=== PATIENT | female | born 1960 | race Caucasian/White ===

== ENCOUNTER 2016-05-16 12:37 | Emergency (ER) | payer OTHER ==
[~2016-05-16] VITALS: Ht 154.9 cm; Wt 101.2 kg
[~2016-05-16 12:37] MED LIST: KEFLEX500 MG PO; LEVAQUIN750 MG PO; OXYMORPHONE HCL15 MG PO; PREDNISONE20 MG PO; TESSALON PERLE100 MG PO; ZOFRAN ODT4 MG PO
[2016-05-16] MEDS ORDERED: OXYCODONE HCL10 MG PO (13:20)
[2016-05-16] MEDS ORDERED: OPANA ER15 MG PO (13:21)
[2016-05-16] MEDS ORDERED: LYRICA300 MG PO (13:21)
[2016-05-16] MEDS ORDERED: FLEXERIL10 MG PO (14:35)
[2016-05-16 14:59] VITALS: BP 131/62
== END 2016-05-16 15:04 | disposition home or self-care (01) ==
LOC: EME 12:37
DX: M54.41 Lumbago with sciatica, right side (principal); G89.29 Other chronic pain; Z79.891 Long term (current) use of opiate analgesic; F17.200 Nicotine dependence, unspecified, uncomplicated
CPT/HCPCS: 72100; 73502; 99281; 99284; J1100

== ENCOUNTER → 2016-10-29 | Outpatient (CLI) | payer OTHER ==
[~2016-10-29] MED LIST changes: +FLEXERIL10 MG PO; +LYRICA300 MG PO; +OPANA ER15 MG PO; +OXYCODONE HCL10 MG PO
== END | disposition home or self-care (01) ==
LOC: NUC 08:33
DX: E05.90 Thyrotoxicosis, unspecified without thyrotoxic crisis or storm (principal)
CPT/HCPCS: 79005; A9517

== ENCOUNTER 2017-03-26 19:20 | Inpatient (IN) | payer OTHER ==
[~2017-03-26] VITALS: Ht 154.9 cm; Wt 97.9 kg
[~2017-03-26 19:20] MED LIST changes: +LYRICA150 MG PO; -LYRICA300 MG PO
[2017-03-26 20:14] LABS: HEMATOCRIT 46.8 % (36.0-46.0); MCHC 35.5 G/DL (30.0-36.0); MCV 87.3 FL (83-99); MEAN PLAT.VOLUME 9.5 uM^3 (9.5-12.4); PLATELET COUNT 161 K/uL (156-360); RBC DIS.WIDTH-CV 11.9 % (11.8-14.6); RBC DIS.WIDTH-SD 38.4 % (39-53); RED BLOOD COUNT 5.36 M/uL (3.80-5.20); WHITE BLOOD COUNT 6.9 K/uL (4.1-10.2)
[2017-03-26 20:21] LABS: CARBON DIOXIDE (BICARBONATE) 24.6 MEQ/L (20-31)
[2017-03-26 20:27] LABS: CHLORIDE 101 mEq/L (99-109); POTASSIUM 3.5 mEq/L (3.7-5.4); SODIUM 138 mEq/L (136-147)
[2017-03-26 20:28] LABS: GLUCOSE 107 mg/dL (70-99)
[2017-03-26 20:30] LABS: ANION GAP 13 MEQ/L (2-14)
[2017-03-26 20:32] LABS: GFR ESTIMATE (CALCULATED) > 59 mL/min/
[2017-03-26 20:33] LABS: UREA NITROGEN (BUN) 12 mg/dL (9-23)
[2017-03-26 20:35] LABS: TROP-I INTERPRETATION NEGATIVE; TROPONIN-I < 0.01 ng/mL (0.0-0.30)
[2017-03-26] MEDS ORDERED: PHENERGAN-CODE120 ML PO (21:59)
[2017-03-26] MEDS ORDERED: TAPAZOLE10 MG PO (22:00)
[2017-03-26] MEDS ORDERED: PROAIR HFA8.5 GM IH (22:01)
[2017-03-26] MEDS ORDERED: ALBUTEROL2.5 MG/3 M IH (22:03)
[2017-03-27 00:42] VITALS: BP 138/77
[2017-03-27 07:10] LABS: ANION GAP 11 MEQ/L (2-14); CHLORIDE 103 MEQ/L (99-109); GFR ESTIMATE (CALCULATED) > 59 mL/min/; SAMPLE HEMOLYSIS CHECK 0; SAMPLE ICTERIC CHECK 0; SAMPLE LIPEMIA CHECK 0; SODIUM 135 MEQ/L (136-147); UREA NITROGEN (BUN) 15 mg/dL (9-23)
[2017-03-27 07:11] LABS: GLUCOSE 419 mg/dL (70-99); MCH 30.3 PG (29.0-34.0); MCHC 34.4 G/DL (30.0-36.0); MCV 88.2 FL (83-99); MEAN PLAT.VOLUME 9.6 uM^3 (9.5-12.4); PLATELET COUNT 147 K/uL (156-360); POTASSIUM 4.3 MEQ/L (3.7-5.4); RBC DIS.WIDTH-SD 39.1 % (39-53); RED BLOOD COUNT 4.65 M/uL (3.80-5.20); WHITE BLOOD COUNT 2.9 K/uL (4.1-10.2)
[2017-03-27 07:23] VITALS: BP 129/68
[2017-03-27 08:12] LABS: TROP-I INTERPRETATION NEGATIVE; TROPONIN-I < 0.01 ng/mL (0.0-0.30)
[2017-03-27 08:15] LABS: Estimated Average Glucose 120 mg/dL (70-123); HEMOGLOBIN A1c (GLYCOHEMOGLOB) 5.8 % HGB (Below 5.7)
[2017-03-27 12:17] LABS: POINT-OF-CARE METER ID UU13113717
[2017-03-27 15:15] VITALS: BP 130/71
[2017-03-27 16:55] LABS: POINT-OF-CARE METER ID UU13113717
[2017-03-27 21:52] LABS: POINT-OF-CARE METER ID UU13113717
[2017-03-27 23:40] VITALS: BP 159/84
[2017-03-28 06:21] LABS: HEMATOCRIT 41.4 % (36.0-46.0); MCH 30.8 PG (29.0-34.0); MCHC 34.3 G/DL (30.0-36.0); MCV 89.8 FL (83-99); MEAN PLAT.VOLUME 10.4 uM^3 (9.5-12.4); PLATELET COUNT 144 K/uL (156-360); RBC DIS.WIDTH-CV 12.2 % (11.8-14.6); RBC DIS.WIDTH-SD 39.8 % (39-53); RED BLOOD COUNT 4.61 M/uL (3.80-5.20); WHITE BLOOD COUNT 8.1 K/uL (4.1-10.2)
[2017-03-28 06:48] LABS: ANION GAP 9 MEQ/L (2-14); CHLORIDE 103 MEQ/L (99-109); GFR ESTIMATE (CALCULATED) > 59 mL/min/; GLUCOSE 212 mg/dL (70-99); POTASSIUM 4.6 MEQ/L (3.7-5.4); SAMPLE HEMOLYSIS CHECK 0; SAMPLE ICTERIC CHECK 0; SAMPLE LIPEMIA CHECK 0; SODIUM 137 MEQ/L (136-147); UREA NITROGEN (BUN) 20 mg/dL (9-23)
[2017-03-28 07:48] VITALS: BP 152/76
[2017-03-28 08:06] LABS: POINT-OF-CARE METER ID UU14174225
[2017-03-28 11:43] LABS: POINT-OF-CARE METER ID UU14174225
[2017-03-28] MEDS ORDERED: FAMOTIDINE20 MG PO ×2 (12:39→15:18)
[2017-03-28] MEDS ORDERED: DUONEB 2.5-0.5 M3 ML AEROSOL (12:39)
[2017-03-28] MEDS ORDERED: AZITHROMYCIN500 M1 PO ×3 (13:38→16:23)
[2017-03-28] MEDS ORDERED: PREDNISONE10 MG PO ×2 (13:38→15:18)
[2017-03-28] MEDS ORDERED: ADVAIR 100/501 DISK IH (15:18)
[2017-03-28] MEDS ORDERED: SPIRIVA1 INHALATI IH ×2 (15:18→16:23)
[2017-03-28] MEDS ORDERED: DULERA 100 MCG/13 GM IH (15:38)
[2017-03-28] MEDS ORDERED: TUDORZA PRESS400 MCG IH (15:38)
[2017-03-28 16:12] LABS: POINT-OF-CARE METER ID UU14174225
[2017-03-28] MEDS ORDERED: ANORO ELLIPTA1 EACH IH (16:23)
== END 2017-03-28 17:38 | disposition home or self-care (01) | DRG 191 ==
LOC: EME 19:20 → 5SOUTH 22:33 → EDOF 22:33 → ENRESERV 22:56 → 5SOUTH 23:54 → ENPENDDIS 03-28 → 5SOUTH 03-28 17:38
PROVIDERS: Emergency Medicine; Hospitalist; Internal Medicine
DX: J44.1 Chronic obstructive pulmonary disease with (acute) exacerbation (principal); J44.0 Chronic obstructive pulmonary disease with (acute) lower respiratory infection; J20.9 Acute bronchitis, unspecified; G89.29 Other chronic pain; M54.5 Low back pain; E66.01 Morbid (severe) obesity due to excess calories; Z68.41 Body mass index [BMI] 40.0-44.9, adult; G43.909 Migraine, unspecified, not intractable, without status migrainosus; G57.90 Unspecified mononeuropathy of unspecified lower limb; R11.2 Nausea with vomiting, unspecified; F17.210 Nicotine dependence, cigarettes, uncomplicated; F41.9 Anxiety disorder, unspecified; Z82.5 Family history of asthma and other chronic lower respiratory diseases
CPT/HCPCS: 71020; 80048; 82803; 82948; 83036; 83605; 83880; 84484; 85027; 87040; 93005; 93306; 94640; 99202; 99281; 99285; J1100; J1644; J1815; J2405; J2920; J7030; J7512; J7644

== ENCOUNTER 2017-10-07 11:28 | Emergency (ER) | payer OTHER ==
[~2017-10-07] VITALS: Ht 154.9 cm; Wt 107.8 kg
[~2017-10-07 11:28] MED LIST changes: +ADVAIR 100/501 DISK IH; +ALBUTEROL2.5 MG/3 M IH; +ANORO ELLIPTA1 EACH IH; +AZITHROMYCIN500 M1 PO; +DULERA 100 MCG/13 GM IH; +DUONEB 2.5-0.5 M3 ML AEROSOL; +FAMOTIDINE20 MG PO; +PHENERGAN-CODE120 ML PO; +PREDNISONE10 MG PO; +PROAIR HFA8.5 GM IH; +SPIRIVA1 INHALATI IH; +TAPAZOLE10 MG PO; +TUDORZA PRESS400 MCG IH
[2017-10-07 12:38] LABS: BASOPHIL (%) 0.4 % (0-1); EOSINOPHIL COUNT 0.1 K/uL (0-0.3); HEMOGLOBIN 15.8 G/DL (11.9-15.5); IMMATURE GRANULOCYTE (%) 0.7 % (0.0-0.7); LYMPHOCYTE (%) 31.8 % (15-42); LYMPHOCYTE COUNT 2.3 K/uL (1.0-2.8); MCH 32.2 PG (29.0-34.0); MCHC 35.1 G/DL (30.0-36.0); MCV 91.6 FL (83-99); MONOCYTE (%) 7.4 % (3-12); MONOCYTE COUNT 0.5 K/uL (0-0.8); NEUTROPHIL (%) 58.7 % (45-76); NEUTROPHIL COUNT 4.2 K/uL (1.8-6.4); PLATELET COUNT 195 K/uL (156-360); RBC DIS.WIDTH-CV 12.2 % (11.8-14.6); RED BLOOD COUNT 4.91 M/uL (3.80-5.20); WHITE BLOOD COUNT 7.1 K/uL (4.1-10.2)
[2017-10-07 12:46] LABS: CHLORIDE 105 mEq/L (99-109); POTASSIUM 3.8 mEq/L (3.7-5.4); SODIUM 139 mEq/L (136-147)
[2017-10-07 12:47] LABS: GLUCOSE 94 mg/dL (70-99)
[2017-10-07 12:51] LABS: CREATININE 0.8 mg/dL (0.6-1.3); GFR ESTIMATE (CALCULATED) > 59 mL/min/
[2017-10-07 12:52] LABS: UREA NITROGEN (BUN) 11 mg/dL (9-23)
[2017-10-07] MEDS ORDERED: ZITHROMAX Z-PA250 MG PO (14:18)
[2017-10-07] MEDS ORDERED: PREDNISONE50 MG PO (14:18)
[2017-10-07 14:48] VITALS: BP 121/69
== END 2017-10-07 14:50 | disposition home or self-care (01) ==
LOC: EME 11:28
PROVIDERS: Emergency Medicine
DX: J44.1 Chronic obstructive pulmonary disease with (acute) exacerbation (principal); J20.9 Acute bronchitis, unspecified; J44.0 Chronic obstructive pulmonary disease with (acute) lower respiratory infection; I10 Essential (primary) hypertension; F41.9 Anxiety disorder, unspecified; F32.9 Major depressive disorder, single episode, unspecified; F17.200 Nicotine dependence, unspecified, uncomplicated; Z88.6 Allergy status to analgesic agent
CPT/HCPCS: 71045; 80048; 85025; 93005; 94640; 99281; 99285; J7512